=== PATIENT | female | born 1965 | race Caucasian/White ===

== ENCOUNTER 2016-04-02 11:11 | Day surgery (SDC) | payer OTHER ==
[2016-04-01 17:12] VITALS: BMI 28.3
[2016-04-02 11:40] VITALS: TEMP 98
[2016-04-02] MEDS ORDERED: BOTULINUM TOXIN A 100 UNITS VIAL NR ONE (12:00)
[2016-04-02] MEDS ORDERED: ceFAZolin SODIUM 1 GM VIAL ONE (12:03)
[2016-04-02] MEDS ORDERED: PROPOFOL 20 ML ONE (12:03)
[2016-04-02] MEDS ORDERED: DEXAMETHASONE SOD PHOSPHATE 4 MG/1 ML VIAL ONE (12:03)
[2016-04-02] MEDS ORDERED: MIDAZOLAM HCL 2 MG/2 ML SINGLE DOSE VIAL ONE (12:04)
[2016-04-02] MEDS ORDERED: ceFAZolin SODIUM 1 GM VIAL IVPB ONE (12:15)
[2016-04-02] MEDS ORDERED: CEPHALEXIN MONOHYDRATE 500 MG CAPSULE (UD) PO ONE (12:34)
[2016-04-02] MEDS ORDERED: ACETAMINOPHEN 325 MG TABLET (FP) PO PRN (12:34)
[2016-04-02] MEDS ORDERED: oxyCODONE HCL 5 MG TABLET PO PRN (12:41)
[2016-04-02] MEDS ORDERED: ONDANSETRON 4 MG/2 ML VIAL IVPUSH PRN (12:41)
[2016-04-02] MEDS ORDERED: LACTATED RINGERS SOLUTION 1,000 ML IV SCH (12:45)
--- NOTE | 2016-04-02 13:22 | OP ---
DATE OF OPERATION: 04/02/2016 PREOPERATIVE DIAGNOSIS: Overactive bladder. POSTOPERATIVE DIAGNOSIS: Overactive bladder with meatal stenosis. OPERATIVE PROCEDURE: Cystourethroscopy, urethral dilation, and Botox injection into the bladder. ANESTHESIA: General. DESCRIPTION OF PROCEDURE: Under above-stated anesthesia, the patient is prepped and draped in the usual sterile manner. She is placed in the dorsal lithotomy position. Inspection of the bladder revealed atrophic vaginal mucosa. Cystoscopy was performed under direct vision. The meatus appeared to be dry and stenotic; therefore, this was dilated with straight [place] sounds commencing at 20 and ending at 30 [place]. Cystoscope was then inserted. There was a grade 1 trabeculation of the bladder. Urine was collected for culture and sensitivity. No lesions were noted. No calculi were seen. Ureteral orifices were within normal limits with efflux of clear urine bilaterally. The trigone revealed squamous metaplasia. Then 100 units of Botox was mixed with 20 mL of sterile water Four syringes of 5 mL units were made. The 1st row of injections was 1 cm above the interureteric ridge commencing from the extreme right and moving onto the left side of the bladder, 1 cm above that the 2nd row was performed, 1 cm above that the 3rd row was injected, and 1 cm above that the 4th and last row was injected. No active bleeding was noted. The bladder was emptied. Scope was removed. The patient tolerated the procedure well. She returned to the recovery room in good condition. WILLIS ALCANTAR M.D. [id number]
[2016-04-02 14:39] VITALS: BP 125/76; PULSE 62
--- NOTE | 2016-04-02 17:46 | HP ---
DATE OF ADMISSION: DATE OF DICTATION: 04/02/2016 Patient is here for an ambulatory surgical procedure. She is a 50-year-old female with history of overactive bladder, has been on multiple anticholinergics. She has also been on beta 3 agonists and Kegel exercises. She continues to have urinary frequency, urgency, and nocturia. The patient also has urge incontinence. She denies any other medical or surgical history. PHYSICAL EXAMINATION: General: Revealed a well developed adult female in no apparent distress. Chest: Clear. Abdomen: Soft. There was some suprapubic tenderness. Pelvic: Atrophic vaginitis. No cystorectocele were seen. Lucas test was negative. Extremities: Full range of motion. There was no cyanosis, clubbing, or edema. IMPRESSION: At present is overactive bladder. The patient has undergone an appendectomy. She is 4 years postmenopausal. She denies ethanol or tobacco use. She lives at home with her and family. The procedure has been explained, and she agrees. An [id number]
== END 2016-04-02 14:39 | disposition home or self-care (01) ==
LOC: JASU-SURG 11:11
PROVIDERS: ATTEND Urology
PROC: 3E0K8GC Introduction of Other Therapeutic Substance into Genitourinary Tract, Via Natural or Artificial Opening Endoscopic (ICD-10-PCS; 2016-04-02)
PROC: 3E0K8GC Introduction of Other Therapeutic Substance into Genitourinary Tract, Via Natural or Artificial Opening Endoscopic (ICD-10-PCS; principal; 2016-04-02 13:00)
DX: N32.81 Overactive bladder (principal); N35.9 Urethral stricture, unspecified
CPT/HCPCS: 52287; J0585; 87086; 94760

== ENCOUNTER 2021-03-24 12:26 | Emergency (ER) | payer OTHER ==
[2021-03-24 12:36] VITALS: BP 120/71; PULSE 77; TEMP 97.9; BMI 28.3
[2021-03-24] MEDS ORDERED: ACETAMINOPHEN 500 MG TABLET (FP) PO ONE (13:34)
[2021-03-24] MEDS ORDERED: ACETAMINOPHEN 500 MG TABLET (FP) ONE (14:09)
== END 2021-03-24 14:59 | disposition home or self-care (01) ==
LOC: JER 12:26
DX: J45.909 Unspecified asthma, uncomplicated (principal)
CPT/HCPCS: 71046-TC-FY; 99283-25

== ENCOUNTER 2021-07-21 04:45 | Day surgery (SDC) | payer OTHER ==
[2021-07-16 14:44] VITALS: BMI 27.4
[2021-07-21] MEDS ORDERED: ONDANSETRON 4 MG/2 ML VIAL IVPUSH PRN (10:53)
[2021-07-21] MEDS ORDERED: oxyCODONE HCL 5 MG TABLET PO PRN (10:53)
[2021-07-21] MEDS ORDERED: ONABOTULINUMTOXINA 200 UNIT/VIAL VIAL NR ONE (11:00)
[2021-07-21] MEDS ORDERED: LACTATED RINGERS SOLUTION 1,000 ML IV SCH (11:00)
[2021-07-21] MEDS ORDERED: LIDOCAINE HCL/PF 2% SDV 5ML VIAL ONE (11:09)
[2021-07-21] MEDS ORDERED: MIDAZOLAM HCL 2 MG/2 ML SINGLE DOSE VIAL ONE (11:10)
[2021-07-21] MEDS ORDERED: FENTANYL CITRATE/PF 50 MCG/ML VIAL ONE ×2 (11:10→12:09)
[2021-07-21] MEDS ORDERED: PROPOFOL 20 ML ONE ×2 (11:10→11:12)
[2021-07-21] MEDS ORDERED: ONABOTULINUMTOXINA 200 UNIT/VIAL VIAL IM ONE ×2 (11:35→11:47)
[2021-07-21] MEDS ORDERED: ceFAZolin SODIUM 1 GM VIAL IVPB ONE (11:38)
[2021-07-21] MEDS ORDERED: DEXAMETHASONE SOD PHOSPHATE 4 MG/1 ML VIAL ONE (11:53)
[2021-07-21] MEDS ORDERED: oxyCODONE HCL 5 MG TABLET ONE (13:31)
[2021-07-21] MEDS ORDERED: ONDANSETRON 4 MG/2 ML VIAL ONE (13:32)
[2021-07-21 14:41] VITALS: TEMP 97.8
[2021-07-21 14:44] VITALS: BP 118/67; PULSE 67
== END 2021-07-21 14:10 | disposition home or self-care (01) ==
LOC: JASU-SURG 04:45
PROVIDERS: ATTEND Urology
PROC: 0TND8ZZ Release Urethra, Via Natural or Artificial Opening Endoscopic (ICD-10-PCS; principal; 2021-07-21 10:30)
PROC: 3E0K8GC Introduction of Other Therapeutic Substance into Genitourinary Tract, Via Natural or Artificial Opening Endoscopic (ICD-10-PCS; 2021-07-21 10:30)
DX: N32.81 Overactive bladder (principal); N31.9 Neuromuscular dysfunction of bladder, unspecified; N32.0 Bladder-neck obstruction; N81.10 Cystocele, unspecified; N95.2 Postmenopausal atrophic vaginitis
CPT/HCPCS: 87086; 94760; J0585

== ENCOUNTER 2022-05-11 05:05 | Day surgery (SDC) | payer OTHER ==
[2022-05-10 10:46] VITALS: BMI 27.4
[2022-05-11] MEDS ORDERED: MIDAZOLAM HCL 2 MG/2 ML SINGLE DOSE VIAL ONE ×2 (11:03→11:12)
[2022-05-11] MEDS ORDERED: ceFAZolin SODIUM 1 GM VIAL IVPB ONE (11:06)
[2022-05-11 12:20] VITALS: RESP 16
[2022-05-11 13:13] VITALS: BP 97/57; PULSE 63; TEMP 97.8
== END 2022-05-11 13:10 | disposition home or self-care (01) ==
LOC: JASU-SURG 05:05
PROVIDERS: ATTEND Urology
PROC: 0TF4XZZ Fragmentation in Left Kidney Pelvis, External Approach (ICD-10-PCS; principal; 2022-05-11 11:15)
DX: N20.0 Calculus of kidney (principal)